=== PATIENT | female | born 1975 | race Caucasian/White ===

== ENCOUNTER 2016-07-13 13:35 | Emergency (ER) | payer BC ==
[2016-07-13 13:51] VITALS: BP 107/55
--- NOTE | 2016-07-13 14:23 | UC ---
Ivana Treviño SooYoung, [facility] on 07/13/16 at 1357 . Skin Complaint HPI - HPI Summary HPI Summary: IN ROOM NOTE: A 41 y/o F presents to [facility] [place] with c/o foreign body on lateral side of small finger on L hand onset two days ago. Pt was making an Easter basket when she stuck herself with a small piece of wood. She notes no pain as of today. She was unable to remove it, but wants it removed before it possibly becomes infected. PCP is Dr. Reddy. No overnight hospitalizations. She's unsure if she' s UTD on her tetanus. Pt is left-hand dominant. NOTE: Vital signs stable, afebrile, pulse ox: 100. PMHx: hypothroidism. NURSE'S NOTE: Splinter in L little finger since Thursday. Has been unable to remove it. [ End ] - History of Current Complaint Stated Complaint: FB IN FINGER Hx Obtained From: Patient Hx Last Menstrual Period: current Onset/Duration: Lasting Days - two days ago, Still Present Onset Severity: Mild Current Severity: None Pain Intensity: 0 Pain Scale Used: 0-10 Numeric Location: Hand (Left) - small finger Character: Raised Associated Signs & Symptoms: Positive: Negative - Allergy/Home Medications Allergies/Adverse Reactions: Allergies Allergy/AdvReac Type Severity Reaction Status Date / Time No Known Allergies Allergy Verified 07/13/16 13:44 Home Medications: Home Medications Cholecalciferol [D3] 400 unit PO DAILY 07/13/16 [History Confirmed 07/13/16] Docosahexaenoic Acid [Dha Natural Holcomb-3] 200 mg PO DAILY 07/13/16 [History Confirmed 07/13/16] Review of Systems Constitutional: Negative Skin: Other - POS: SPLINTER IN L SMALL FINGER All Other Systems Reviewed And Are Negative: Yes PMH/Surg Hx/FS Hx/Imm Hx Previously Healthy: No Endocrine History Of: Reports: Thyroid Disease - Borderline Hypothyroid; takes meds Denies: Diabetes Cardiovascular History Of: Denies: Cardiac Disorders, Hypertension Respiratory History Of: Denies: COPD, Asthma GI/ History Of: Denies: Ulcer - Surgical History Surgical History: Yes Surgery Procedure, Year, and Place: [place] teeth removal @ 27 yoa - Family History Known Family History: Positive: Other - multiple CA, brain anuerysms - Social History Occupation: Employed Full-time Lives: With Family Alcohol Use: Occasionally Substance Use Type: None Smoking Status (MU): Never Smoked Tobacco - Immunization History Most Recent Influenza Vaccination: none Most Recent Tetanus Shot: 2011 or 2010 for cat bite Physical Exam Triage Information Reviewed: Yes Appearance: Well-Appearing, No Pain Distress, Well-Nourished Vital Signs: Initial Vital Signs Temp 98.4 F 07/13/16 13:46 Pulse 93 07/13/16 13:46 Resp 16 07/13/16 13:46 BP 107/55 07/13/16 13:46 Pulse Ox 100 07/13/16 13:46 Eye Exam: Normal Eyes: Positive: Conjunctiva Clear ENT: Positive: Hearing grossly normal, Pharynx normal, TMs normal. Negative: Muffled/hoarse voice Neck: Positive: Supple, No Lymphadenopathy Respiratory: Positive: Chest non-tender, Lungs clear, Normal breath sounds, No respiratory distress Cardiovascular: Positive: RRR, No Murmur Abdomen Description: Positive: Nontender, Soft Bowel Sounds: Positive: Present Musculoskeletal: Positive: Strength Intact, Other: - RECINOS Neurological: Positive: Alert Psychological: Positive: Normal Response To Family, Age Appropriate Behavior Skin: Positive: Other - POS: DISTAL ULNAR ASPECT OF HER 5TH FINGER OF HER L HAND , THERE IS A 0.3 CM EMBEDDED WOODEN SPLINTER. Negative: rashes Course/Dx - Course Course Of Treatment: Two day old splinter removed. Pt given instructions with respect to watching for infection and dressing the area. Medications have been included in the original chart and reviewed. Normal BP reading and no follow-up instructions required. - Diagnoses Provider Diagnoses: Splinter 5th finger L hand, removed. Procedures - Procedure Summary Procedure Summary: Procedure done by . Foreign Body Removal: Povidone-iodine applied then cleaned with alcohol. Using splinter forceps, the site was unroofed and a tiny, less than 0.3 cm splinter was removed. Pt was shown site and agreed splinter was no longer present. Area was cleaned and ointment applied, area bandaged. Pt instructed to watch for any signs of infection. Discharge - Discharge Plan Condition: Stable Disposition: HOME Patient Education Materials: Soft Tissue Foreign Body (ED) Referrals: Dnia Denney MD [Primary Care Provider] - Additional Instructions: WE DISCUSSED: 1. The splinter in your 5th finger of your left hand has been removed. 2. Watch for any signs of infection. 3. This should heal over in the next 2-3 days. 4. Use antibiotic ointment today and tomorrow with bandaid. 5. Call at any time for redness, swelling, pain, increased disability. The documentation as recorded by the Ivana graves SooYoung accurately reflects the service I personally performed and the decisions made by me, Juanjo Sepulveda MD.
== END 2016-07-13 14:23 | disposition home or self-care (01) ==
LOC: UCEAST 13:35
DX: S60.457A Superficial foreign body of left little finger, initial encounter (principal); W45.8XXA Other foreign body or object entering through skin, initial encounter; Y93.89 Activity, other specified; Y92.9 Unspecified place or not applicable; E03.9 Hypothyroidism, unspecified
CPT/HCPCS: 99211; G0463

== ENCOUNTER 2016-11-06 08:25 | Emergency (ER) | payer BC ==
[2016-11-06 08:47] VITALS: BP 116/50
--- NOTE | 2016-11-06 10:06 | UC ---
Skin Complaint HPI - HPI Summary HPI Summary: awoke with bug bites on thighs and lower back--red raised and itching has been putting menthol on them that she got at [facility] - History of Current Complaint Chief Complaint: UCSkin Time Seen by Provider: 11/06/16 09:57 Stated Complaint: BUG BITES Hx Obtained From: Patient Hx Last Menstrual Period: 11/06/16 ?: No Onset/Duration: Sudden Onset, Lasting Days - 1, Still Present Timing: Constant Onset Severity: Mild Current Severity: Mild Location: Diffuse Character: Redness, Raised Aggravating: Nothing Alleviating: Other - menthol ointment from [facility] Associated Signs & Symptoms: Positive: Negative Related History: Insect Bite/Sting - Allergy/Home Medications Allergies/Adverse Reactions: Allergies Allergy/AdvReac Type Severity Reaction Status Date / Time No Known Allergies Allergy Verified 11/06/16 08:29 Review of Systems Constitutional: Negative Skin: Other - multiple raise macula on back buttocks and legs Eyes: Negative ENT: Negative Respiratory: Negative Cardiovascular: Negative Gastrointestinal: Negative Genitourinary: Negative Motor: Negative Neurovascular: Negative Musculoskeletal: Negative Neurological: Negative Psychological: Negative All Other Systems Reviewed And Are Negative: Yes PMH/Surg Hx/FS Hx/Imm Hx Previously Healthy: Yes - Surgical History Surgical History: Yes Surgery Procedure, Year, and Place: [place] teeth removal @ 27 yoa - Family History Known Family History: Positive: Other - multiple CA, brain anuerysms - Social History Occupation: Employed Full-time Lives: With Family Alcohol Use: Occasionally Substance Use Type: None Smoking Status (MU): Never Smoked Tobacco - Immunization History Most Recent Influenza Vaccination: none Most Recent Tetanus Shot: 2011 or 2010 for cat bite Physical Exam Triage Information Reviewed: Yes Appearance: Well-Appearing, No Pain Distress, Well-Nourished Vital Signs: Initial Vital Signs Temp 97.7 F 11/06/16 08:30 Pulse 79 11/06/16 08:30 Resp 16 11/06/16 08:30 BP 116/50 11/06/16 08:30 Pulse Ox 100 11/06/16 08:30 Vital Signs Reviewed: Yes Eye Exam: Normal Eyes: Positive: Conjunctiva Clear ENT Exam: Normal ENT: Positive: Normal ENT inspection, Hearing grossly normal. Negative: Trismus , Muffled/hoarse voice Dental Exam: Normal Neck exam: Normal Neck: Positive: Supple, Nontender Respiratory Exam: Normal Respiratory: Positive: Chest non-tender, No respiratory distress, No accessory muscle use Cardiovascular Exam: Normal Cardiovascular: Positive: RRR, Pulses Normal, Brisk Capillary Refill Musculoskeletal Exam: Normal Musculoskeletal: Positive: Strength Intact, ROM Intact, No Edema Neurological Exam: Normal Neurological: Positive: Alert, Muscle Tone Normal Psychological Exam: Normal Psychological: Positive: Normal Response To Family Skin Exam: Other Skin: Positive: Other - insect bites scattered on lower back buttock and thigh Course/Dx - Course Course Of Treatment: cortisone cream, benadryl, cool compress, follow with pcp prn - Differential Diagnoses - Skin Complaint Differential Diagnoses: Abscess, Allergic Reaction, Cellulitis, Contact Dermatitis, Impetigo, Local Allergic Reaction, Systemic Illness - Diagnoses Provider Diagnoses: Local reaction to insect bites Discharge - Discharge Plan Condition: Stable Disposition: HOME Patient Education Materials: Diphenhydramine (By mouth), Hydrocortisone (On the skin), Insect Bite or Sting (ED) Referrals: Dina Denney MD [Primary Care Provider] - If Needed
== END 2016-11-06 10:11 | disposition home or self-care (01) ==
LOC: UCEAST 08:25
DX: S70.362A Insect bite (nonvenomous), left thigh, initial encounter (principal); S70.361A Insect bite (nonvenomous), right thigh, initial encounter; W57.XXXA Bitten or stung by nonvenomous insect and other nonvenomous arthropods, initial encounter
CPT/HCPCS: 99211; G0463

== ENCOUNTER 2017-12-28 17:48 | Emergency (ER) | payer BC ==
[2017-12-28 18:23] VITALS: BP 104/69
[2017-12-28] MEDS ORDERED: Tetan/Diph/Pertus SYR(Tdap)* 0.5 ML SYR(BOOSTRIX) use SYR IM ONE (20:03)
--- NOTE | 2017-12-28 20:11 | UC ---
Bite Injury/Animal HPI - HPI Summary HPI Summary: 42 y/o female presents to the urgent care c/o her cat bit her today in her Rt thumb while she was trying to open her bag of food today around 1500PM today. PT states her cat is UTD w/ all immunizations. Pt states pain is 1/10 at touch. She is not sure when she got her last Tetanus vaccine. But she got the rabies vaccine in 2012 after a bat exposure. - History of Current Complaint Chief Complaint: UCBiteInjury Stated Complaint: CAT BITE Time Seen by Provider: 12/28/17 19:46 Hx Obtained From: Patient Hx Last Menstrual Period: 11/06/16 ?: No Severity Currently: Mild Severity Initially: Mild Pain Intensity: 1 Pain Scale Used: 0-10 Numeric Onset/Duration: Sudden Onset, Lasting Hours - 5hrs ago Type of Bite: Pet - cat bite Has Animal Been Immunized?: Yes Character: Puncture - superficial Aggravating Factor(s): Other - touch Alleviating Factor(s): Rest Associated Signs And Symptoms: Positive: Negative. Negative: Fever, Swelling, Numbness/Tingling Hx of Bite: Provoked by: - pulling food Animal Available for Observation: Yes Animal Control Notified: No - Risk Factors Infection/Sepsis Risk Factors: Negative - Allergies/Home Medications Allergies/Adverse Reactions: Allergies Allergy/AdvReac Type Severity Reaction Status Date / Time No Known Allergies Allergy Verified 12/28/17 18:23 Home Medications: Home Medications Docosahexanoic Acid [Dha] 100 mg PO 12/28/17 [History] PMH/Surg Hx/FS Hx/Imm Hx Previously Healthy: Yes Endocrine History: Hypothyroidism - Surgical History Surgical History: Yes Surgery Procedure, Year, and Place: [place] teeth removal @ 27 yoa - Family History Family History: hypothyrodism, multiple CA, brain anuerysms - Social History Occupation: Employed Full-time Lives: With Family Alcohol Use: Occasionally Substance Use Type: None Smoking Status (MU): Never Smoked Tobacco - Immunization History Most Recent Influenza Vaccination: none Most Recent Tetanus Shot: 2011 or 2010 for cat bite Review of Systems Constitutional: Negative Skin: Other - Rt thumb cat bite Eyes: Negative ENT: Negative Respiratory: Negative Cardiovascular: Negative Gastrointestinal: Negative Genitourinary: Negative Motor: Negative Neurovascular: Negative Musculoskeletal: Other: - Rt thumb pain s/p cat bite Neurological: Negative Psychological: Negative Is Patient Immunocompromised?: No All Other Systems Reviewed And Are Negative: Yes Physical Exam - Summary Physical Exam Summary: Vital Signs Reviewed: Yes General: well developed, well nourished female sitting in the examining table w/ o any apparent distress. Eyes: Positive: Conjunctiva Clear - PERRLA, EOMI ENT: Positive: Normal ENT inspection, Hearing grossly normal, Pharynx normal, TMs normal Neck: Positive: Supple, Nontender, No Lymphadenopathy Respiratory: Positive: Chest nontender, Lungs clear, Normal breath sounds Cardiovascular: Positive: RRR, No Murmur, Pulses Normal Abdomen Description: Positive: Nontender, No Organomegaly, Soft. Negative: CVA Tenderness (R), CVA Tenderness (L) Bowel Sounds: Positive: Present Musculoskeletal: Positive: Strength Intact, ROM Intact, No Edema Neurological Exam: Normal Psychological Exam: Normal Skin: Positive: rashes - Proximal medial aspect of RT fist phalanx w/ 2 discrete superficial puncture wound s/p cat bite , no surrounding erythema, mild tender to palpation. no swelling or drainage observed, non bleeding . FROM or RT thumb and RT hand, sensation intact, capillary refill brisk, and pulses WNL. Triage Information Reviewed: Yes Vital Signs: Initial Vital Signs Temp 97.9 F 12/28/17 18:19 Pulse 70 12/28/17 18:19 Resp 18 12/28/17 18:19 BP 104/69 12/28/17 18:19 Pulse Ox 100 12/28/17 18:19 Bite Injury Course/Dx - Differential Dx/Diagnosis Differential Diagnosis/HQI/PQRI: Cellulitis, Laceration, Puncture, Rabies Exposure, Superficial Infection Provider Diagnoses: 1- RT first phalanx superficial puncture wound s/p cat bite Discharge - Sign-Out/Discharge Documenting (check all that apply): Patient Departure - D/c home All imaging exams completed and their final reports reviewed: No Studies - Discharge Plan Condition: Stable Disposition: HOME Prescriptions: Amoxicillin/Clavulanate TAB* [Augmentin TAB 875*] 875 mg PO BID #19 tab Bacitracin OINTMENT* 1 applic TOPICAL BID #1 tube Patient Education Materials: Animal Bite (ED) Referrals: Dina Denney MD [Primary Care Provider] - 3 Days Additional Instructions: 1-Please take full course of antibiotic to avoid resistance. First dose given tonight 2- Keep wound clean and dry and avoid excessive movement w/ your finger. Apply Bacitracin oint as directed 3-Take Ibuprofen or Tylenol PO q6-8hrs prn for pain or swelling. 4- If you develop fever or redness around your finger despite the antibiotic please go to the ER immediately or return to the Urgent care. 5- You were given Tetanus vaccine today 6- Please close observation w/ your cat, if any abnormal behavior develops please notify the Health department immediately - Billing Disposition and Condition Condition: STABLE Disposition: Home
[2017-12-28] MEDS ORDERED: Amoxicillin/Clavulanate TAB* 875 MG PO ONE (20:12)
== END 2017-12-28 20:35 | disposition home or self-care (01) ==
LOC: UCEAST 17:48
DX: S61.031A Puncture wound without foreign body of right thumb without damage to nail, initial encounter (principal); W55.01XA Bitten by cat, initial encounter; Y93.89 Activity, other specified; Y92.009 Unspecified place in unspecified non-institutional (private) residence as the place of occurrence of the external cause; Z23 Encounter for immunization
CPT/HCPCS: 90471; 90715; 99212; A9270-GY; G0463

== ENCOUNTER 2018-11-14 11:24 | Emergency (ER) | payer BC ==
[2018-11-14 11:39] VITALS: BP 117/61
--- NOTE | 2018-11-14 12:27 | UC ---
Bite Injury/Animal HPI - HPI Summary HPI Summary: cat bite to left hand web space between thumb and forefinger this morning - History of Current Complaint Chief Complaint: UCBiteInjury Stated Complaint: CAT BITE Time Seen by Provider: 11/14/18 12:23 Hx Obtained From: Patient Hx Last Menstrual Period: 11/14/18 ?: No Pain Intensity: 1 Pain Scale Used: 0-10 Numeric Onset/Duration: Sudden Onset Type of Bite: Pet Has Animal Been Immunized?: Yes Character: Puncture Aggravating Factor(s): Nothing Alleviating Factor(s): Nothing Associated Signs And Symptoms: Positive: Negative Hx of Bite: Unprovoked Animal Available for Observation: Yes Animal Control Notified: Yes - Allergies/Home Medications Allergies/Adverse Reactions: Allergies Allergy/AdvReac Type Severity Reaction Status Date / Time No Known Allergies Allergy Verified 11/14/18 11:38 Home Medications: Home Medications L.acidoph,Paracasei, B.lactis [Probiotic] 1 tab PO DAILY 11/14/18 [History Confirmed 11/14/18] Levonorgestrel-Ethin Estradiol [Levonor-Eth Estrad 0.1-0.02 mg] 1 tab PO DAILY 11/14/18 [History Confirmed 11/14/18] Mupirocin 2% CREAM* [Bactroban 2% CREAM*] 1 applic TOPICAL DAILY 11/14/18 [ History Confirmed 11/14/18] buPROPion HCl [Wellbutrin Sr] 1 tab PO DAILY 11/14/18 [History Confirmed ] PMH/Surg Hx/FS Hx/Imm Hx Previously Healthy: Yes - Surgical History Surgical History: Yes Surgery Procedure, Year, and Place: [place] teeth removal @ 27 yoa - Family History Known Family History: Positive: Other - multiple CA, brain anuerysms Family History: hypothyrodism, multiple CA, brain anuerysms - Social History Occupation: Employed Full-time Lives: With Family Alcohol Use: Occasionally Substance Use Type: None Smoking Status (MU): Never Smoked Tobacco - Immunization History Most Recent Influenza Vaccination: none Most Recent Tetanus Shot: 2011 or 2010 for cat bite Review of Systems All Other Systems Reviewed And Are Negative: Yes Constitutional: Positive: Negative Skin: Positive: Other - cat bite left hand in web space between thumb and fore finger Eyes: Positive: Negative ENT: Positive: Negative Respiratory: Positive: Negative Cardiovascular: Positive: Negative Gastrointestinal: Positive: Negative Motor: Positive: Negative Neurovascular: Positive: Negative Musculoskeletal: Positive: Negative Neurological: Positive: Negative Psychological: Positive: Negative Is Patient Immunocompromised?: No Physical Exam Triage Information Reviewed: Yes Appearance: Well-Appearing, No Pain Distress, Well-Nourished Vital Signs: Initial Vital Signs Temp 98.6 F 11/14/18 11:34 Pulse 85 11/14/18 11:34 Resp 18 11/14/18 11:34 BP 117/61 11/14/18 11:34 Pulse Ox 99 11/14/18 11:34 Vital Signs Reviewed: Yes Eye Exam: Normal Eyes: Positive: Conjunctiva Clear ENT Exam: Normal ENT: Positive: Normal ENT inspection, Hearing grossly normal. Negative: Trismus , Muffled voice, Hoarse voice Dental Exam: Normal Neck exam: Normal Neck: Positive: Supple, Nontender, No Lymphadenopathy Respiratory Exam: Normal Respiratory: Positive: Chest non-tender, No respiratory distress, No accessory muscle use Cardiovascular Exam: Normal Cardiovascular: Positive: RRR, Pulses Normal, Brisk Capillary Refill Musculoskeletal Exam: Normal Musculoskeletal: Positive: Strength Intact, ROM Intact, No Edema Neurological Exam: Normal Neurological: Positive: Alert, Muscle Tone Normal Psychological Exam: Normal Skin Exam: Normal Bite Injury Course/Dx - Course Course Of Treatment: Augmentin, warm soaks, observe for s/s of infection follow with pcp - Differential Dx/Diagnosis Provider Diagnosis: Cat bite of left hand Discharge - Sign-Out/Discharge Documenting (check all that apply): Patient Departure All imaging exams completed and their final reports reviewed: No Studies - Discharge Plan Condition: Stable Disposition: HOME Prescriptions: Amoxicillin/Clavulanate TAB* [Augmentin TAB 875*] 875 mg PO BID #20 tab Patient Education Materials: Animal Bite (ED) Referrals: Dina Denney MD [Primary Care Provider] - If Needed - Billing Disposition and Condition Condition: STABLE Disposition: Home - Attestation Statements Provider Attestation: I was available for consult. This patient was seen by the KAELYN. The patient was not presented to , seen by or examined by nc -Nathaniel Harris MD
== END 2018-11-14 12:35 | disposition home or self-care (01) ==
LOC: UCEAST 11:24
DX: S61.432A Puncture wound without foreign body of left hand, initial encounter (principal); W55.01XA Bitten by cat, initial encounter; Y92.9 Unspecified place or not applicable
CPT/HCPCS: 99212; G0463

== ENCOUNTER 2019-02-11 13:59 | Emergency (ER) | payer BC ==
[2019-02-11 14:14] VITALS: BP 108/61
[2019-02-11] MEDS ORDERED: Tetan/Diph/Pertus SYR(Tdap)* 0.5 ML SYR(BOOSTRIX) use SYR contains LATEX IM ONE (14:14)
--- NOTE | 2019-02-11 14:14 | UC ---
Bite Injury/Animal HPI - HPI Summary HPI Summary: 43 yo female presents with cat bite to right wrist. Pt tells me that she has many cats at home and has been bitten by them many times. Today she was grooming her long haired cat, Mac, and cat did not like this and bit pt's right wrist. Pt washed the area well with soap and water and came directly to . Unsure date of last tetanus, but thinks it was within the last year - History of Current Complaint Chief Complaint: UCBiteInjury Stated Complaint: CAT BITE Time Seen by Provider: 02/11/19 14:14 Hx Obtained From: Patient Hx Last Menstrual Period: 02/04/19 Severity Currently: Mild Severity Initially: Mild Pain Intensity: 3 Pain Scale Used: 0-10 Numeric - Allergies/Home Medications Allergies/Adverse Reactions: Allergies Allergy/AdvReac Type Severity Reaction Status Date / Time No Known Allergies Allergy Verified 02/11/19 14:05 PMH/Surg Hx/FS Hx/Imm Hx Endocrine History: Thyroid Disease Psychological History: Anxiety, Depression - Surgical History Surgical History: Yes Surgery Procedure, Year, and Place: [place] teeth removal @ 27 yoa - Family History Known Family History: Positive: Other - multiple CA, brain anuerysms Family History: hypothyrodism, multiple CA, brain anuerysms - Social History Occupation: Employed Full-time Lives: With Family Alcohol Use: Occasionally Substance Use Type: None Smoking Status (MU): Never Smoked Tobacco - Immunization History Most Recent Influenza Vaccination: none Most Recent Tetanus Shot: 2011 or 2010 for cat bite Review of Systems All Other Systems Reviewed And Are Negative: No Constitutional: Positive: Negative Skin: Positive: Other - Cat bite right wrist Respiratory: Positive: Negative Cardiovascular: Positive: Negative Neurological: Positive: Negative Psychological: Positive: Negative Physical Exam - Summary Physical Exam Summary: GENERAL: NAD. WDWN. No pain distress. SKIN: RIGHT wrist overlying the radius there are two 1mm puncture wounds. 1.0cm linear superficial scratch. Mild TTP. No discharge or bleeding. CHEST: No accessory muscle use. Breathing comfortably and in no distress. CV: Pulses intact. Cap refill <2seconds MSK: Right wrist FROM NEURO: Alert. PSYCH: Age appropriate behavior. Triage Information Reviewed: Yes Vital Signs: Initial Vital Signs Temp 98 F 02/11/19 14:07 Pulse 73 02/11/19 14:07 Resp 16 02/11/19 14:07 BP 108/61 02/11/19 14:07 Pulse Ox 99 02/11/19 14:07 Vital Signs Reviewed: Yes Bite Injury Course/Dx - Course Course Of Treatment: Cat bite - will place on Augmentin. Cat is UTD on immunizations. Last tetanus per our records is 12/2017 - Differential Dx/Diagnosis Provider Diagnosis: Cat bite of right wrist Discharge ED - Sign-Out/Discharge Documenting (check all that apply): Patient Departure All imaging exams completed and their final reports reviewed: No Studies - Discharge Plan Condition: Stable Disposition: HOME Prescriptions: Amoxicillin/Clavulanate TAB* [Augmentin TAB 875*] 875 mg PO BID #14 tab Patient Education Materials: Animal Bite (ED) Referrals: Dina Denney MD [Primary Care Provider] - Additional Instructions: If you develop a fever, shortness of breath, chest pain, new or worsening symptoms - please call your PCP or go to the ED immediately. Your last tetanus shot was in December 2017 according to our records - Billing Disposition and Condition Condition: STABLE Disposition: Home
== END 2019-02-11 14:22 | disposition home or self-care (01) ==
LOC: UCEAST 13:59
DX: S61.551A Open bite of right wrist, initial encounter (principal); W55.01XA Bitten by cat, initial encounter; Y93.K3 Activity, grooming and shearing an animal; Y92.9 Unspecified place or not applicable
CPT/HCPCS: 99212; G0463